=== PATIENT | female | born 1995 | race Caucasian/White ===

== ENCOUNTER → 2022-12-02 | Outpatient (CLI) | payer OTHER, SELFPAY ==
--- NOTE | 2022-12-02 13:21 | US_ITS ---
STUDY: FIRST TRIMESTER OBSTETRICAL ULTRASOUND REASON FOR EXAM: Female, 27 years old DATES LMP: 06/28/2023. TECHNIQUE: Transvaginal TECHNICAL QUALITY: Adequate. PRIOR ULTRASOUND: None. FINDINGS: There is visualization of a single gestational sac in a normal intrauterine position. The mean sac diameter (MSD) measures 8.4 mm, indicating an estimated gestational age (EGA) of 5 weeks, 4 days. The gestational sac shape is within normal limits. There is no demonstrated yolk sac. The placenta is non-visualized. The crown-rump length (CRL) measures 2.7 mm, indicating an estimated gestational age (EGA) of 5 weeks, 6 days. Cardiac activity not detected at this time. The estimated gestation age (EGA) by LMP is 10 weeks, 2 days. The estimated date of delivery (SHAHEED) by LMP is 06/28/2023. The estimated gestation age (EGA) by US is 5 weeks, 6 days. The estimated date of delivery (SHAHEED) by US is 07/29/2023. The uterus measures 9.2 cm x 5.4 cm x 4.8 cm. There is no demonstrated uterine fibroid. The cervix is closed. The right ovary measures 3.8 cm x 2.2 cm x 2.3 cm. There is no right ovarian cyst. There is no visualized right adnexal mass or complex lesion. The left ovary measures 3 cm x 2 cm x 2.2 cm. There is no left ovarian cyst. There is no visualized left adnexal mass or complex lesion. There is no fluid in the cul de sac. US/Transvaginal w/Preg US IMPRESSION: The uterine gestation with a mean gestational age of 5 weeks and 6 days. No cardiac activity is noted at this time. Follow-up is recommended. Electronically Signed: Jhonny Cabrales MD at 14:19 EST ,
== END | disposition home or self-care (01) ==
PROVIDERS: PCP Physician Assistant
DX: Z34.91 Encounter for supervision of normal pregnancy, unspecified, first trimester (principal); Z3A.01 Less than 8 weeks gestation of pregnancy
CPT/HCPCS: 76817

== ENCOUNTER → 2022-12-10 | Outpatient (CLI) | payer OTHER, SELFPAY ==
[2022-12-10 17:31] LABS: Absolute Lymphocyte Count 3.04 X10^3/uL (0.83-4.51); Absolute Neutrophil Count 7.1 X10^3/uL (2.0-7.7); Basophil# 0.05 X10^3/uL; Basophil% 0.4 % (0-1); Eosinophil# 0.13 X10^3/uL; Eosinophils% 1.2 % (0-5); Hematocrit 41.2 % (37-47); Hemoglobin 13.9 g/dL (12.0-15.0); Lymphocyte # 3.04 X10^3/ul (0.83-4.51); Lymphocyte % 27.2 % (19-41); Mean Corp Hgb Conc 33.7 g/dL (32-36); Mean Corpuscular Hgb 29.1 pg (27.0-32.0); Mean Corpuscular Volume 86.4 fL (81-99); Mean Platelet Vol. 9.2 fl (6.2-12.0); Monocyte# 0.86 X10^3/uL; Monocyte% 7.7 % (0-10); NRBC Flagged by Analyzer 0 % (0-5); Neutrophil # 7.07 X10^3/uL (2.7-7.7); Neutrophil % 63.1 % (47-70); Platelet Count 307 K/mm3 (150-450); RBC Distribution Width CV 11.9 % (11.6-14.6); RBC Distribution Width SD 37.8 fl (35.1-43.9); Red Blood Count 4.77 M/mm3 (4.2-5.4); White Blood Count 11.2 K/mm3 (4.4-11.0)
[2022-12-10 19:57] LABS: HIV - WCH Non-Reactive (Nonreactive); Hepatitis B Surface Antigen Non-Reactive (Nonreactive); Hepatitis C Antibody Non-Reactive (Nonreactive); Rubella IgG Reactive (Nonreactive); Syphilis Antibodies Non-reactive
[2022-12-12 19:13] LABS: V-Zoster IgG (Immunity) 1844 index (Immune >165)
[2022-12-17 11:36] LABS: HPV Reflexed? NOT INDICATED
== END | disposition home or self-care (01) ==
LOC: WOBLAB 16:13
PROVIDERS: PCP Physician Assistant; Visit Provider Obstetrics & Gynecology
DX: Z12.4 Encounter for screening for malignant neoplasm of cervix (principal); N91.2 Amenorrhea, unspecified
CPT/HCPCS: 36415; 85025; 86703; 86762; 86780; 86787; 86803; 87086; 87088; 87340; 88175; G0145

== ENCOUNTER → 2023-04-30 | Outpatient (CLI) | payer OTHER, SELFPAY ==
[2023-04-30 11:39] LABS: Hematocrit 37.1 % (37-47); Hemoglobin 12.2 g/dL (12.0-15.0); Mean Corp Hgb Conc 32.9 g/dL (32-36); Mean Corpuscular Hgb 30.1 pg (27.0-32.0); Mean Corpuscular Volume 91.6 fL (81-99); Platelet Count 217 K/mm3 (150-450); RBC Distribution Width CV 12.7 % (11.6-14.6); RBC Distribution Width SD 42.5 fl (35.1-43.9); Red Blood Count 4.05 M/mm3 (4.2-5.4); White Blood Count 8.6 K/mm3 (4.4-11.0)
[2023-04-30 11:55] LABS: Glucose Challenge Gest 1H 50g 157 mg/dL (70-140)
[2023-04-30 12:07] LABS: Syphilis Antibodies Non-reactive
== END | disposition home or self-care (01) ==
LOC: WOBLAB 10:26
PROVIDERS: PCP Physician Assistant; Visit Provider Obstetrics & Gynecology
DX: Z34.82 Encounter for supervision of other normal pregnancy, second trimester (principal)
CPT/HCPCS: 36415; 82950; 85027; 86780

== ENCOUNTER → 2023-05-05 | Outpatient (CLI) | payer OTHER, SELFPAY ==
[2023-05-05 09:25] LABS: Glucose GTT-Gestation. Fasting 95 mg/dL (<105)
[2023-05-05 10:44] LABS: Glucose GTT-Gestational 1 Hr 172 mg/dL (<190)
[2023-05-05 11:53] LABS: Glucose GTT-Gestational 2 Hr 112 mg/dL (<165)
[2023-05-05 12:39] LABS: Glucose GTT-Gestational 3 Hr 98 L (<145)
== END | disposition home or self-care (01) ==
LOC: WOBLAB 08:42
PROVIDERS: PCP Physician Assistant; Visit Provider Obstetrics & Gynecology
DX: Z34.82 Encounter for supervision of other normal pregnancy, second trimester (principal)
CPT/HCPCS: 36415; 82951; 82952

== ENCOUNTER → 2023-07-09 | Outpatient (CLI) | payer OTHER, SELFPAY ==
[2023-07-09 16:08] LABS: Hematocrit 35.6 % (37-47); Hemoglobin 11.5 g/dL (12.0-15.0); Mean Corp Hgb Conc 32.3 g/dL (32-36); Mean Corpuscular Hgb 28.5 pg (27.0-32.0); Mean Corpuscular Volume 88.1 fL (81-99); Mean Platelet Vol. 10.6 fl (6.2-12.0); Platelet Count 167 K/mm3 (150-450); RBC Distribution Width CV 12.8 % (11.6-14.6); RBC Distribution Width SD 40.8 fl (35.1-43.9); Red Blood Count 4.04 M/mm3 (4.2-5.4); White Blood Count 7.5 K/mm3 (4.4-11.0)
== END | disposition home or self-care (01) ==
PROVIDERS: PCP Physician Assistant; Visit Provider Obstetrics & Gynecology
DX: Z34.83 Encounter for supervision of other normal pregnancy, third trimester (principal); Z36.85 Encounter for antenatal screening for Streptococcus B
CPT/HCPCS: 36415; 85027; 87077; 87081; 87186

== ENCOUNTER 2023-08-04 03:20 | Inpatient (IN) | payer OTHER, SELFPAY ==
[2023-08-04] VITALS (87 sets, daily range): BP systolic 64–137; BP diastolic 28–95; PULSE 78–166; TEMP 36.1–37.3; O2SAT 87–100; BMI 36.8
[2023-08-04 03:21] LABS: ROM Internal Control Test YES-OK TO RESULT pt. (Internal QC)
[2023-08-04 03:22] LABS: ROM Patient Test POSITIVE (Negative); Record Kit Lot#, ROM+ K1409
[2023-08-04] MEDS: Lactated Ringers 1,000 ML 200 ML IV ×3 (04:00→15:53)
[2023-08-04] MEDS: Penicillin G Pot 5,000,000 UNITS in 0.9% Normal Saline (100mL MB+) 100 ML 150 UNITS IV (04:09)
[2023-08-04] MEDS: LACTATED RINGERS 500 ML 999 ML IV ×3 (04:10→11:45)
[2023-08-04 04:19] LABS: Absolute Lymphocyte Count 1.99 X10^3/uL (0.83-4.51); Absolute Neutrophil Count 4.6 X10^3/uL (2.0-7.7); Basophil# 0.03 X10^3/uL; Basophil% 0.4 % (0-1); Eosinophil# 0.11 X10^3/uL; Eosinophils% 1.5 % (0-5); Hematocrit 37.7 % (37-47); Hemoglobin 12.2 g/dL (12.0-15.0); Lymphocyte # 1.99 X10^3/ul (0.83-4.51); Lymphocyte % 26.9 % (19-41); Mean Corp Hgb Conc 32.4 g/dL (32-36); Mean Corpuscular Volume 86.5 fL (81-99); Mean Platelet Vol. 11.6 fl (6.2-12.0); Monocyte# 0.62 X10^3/uL; Monocyte% 8.4 % (0-10); NRBC Flagged by Analyzer 0 % (0-5); Neutrophil # 4.61 X10^3/uL (2.7-7.7); Neutrophil % 62.1 % (47-70); POSITIVE COUNT YES; Platelet Count 126 K/mm3 (150-450); RBC Distribution Width CV 13.3 % (11.6-14.6); RBC Distribution Width SD 41.7 fl (35.1-43.9); Red Blood Count 4.36 M/mm3 (4.2-5.4); White Blood Count 7.4 K/mm3 (4.4-11.0)
[2023-08-04 04:22] LABS: Differential Indicated SCAN CRITERIA MET
[2023-08-04] MEDS: Oxytocin 15 Units/NS 250ml 15 UNITS/250 ML IV.SOLN 2 UNITS IV (05:04)
[2023-08-04 05:17] LABS: Syphilis Antibodies Non-reactive
--- NOTE | 2023-08-04 06:51 | HP.PCM.OB_ITS ---
History and Physical Date of Admission: 08/04/23 Chief complaint: Leakage of fluid History present illness: 28-year-old at 40 weeks and 1 day with SHAHEED 08/03/2023 arrives with leakage of fluid. Denies headache, vision change, chest pain, shortness of breath, nausea vomit, right upper quadrant pain. Patient states good movement. is complicated by gestational thrombocytopenia platelets 126 today, GBS positive, BMI 36 Obstetric history: G1: Current Past medical history: None Medications: vitamin Past surgical history: [place] tooth extraction Allergies: No known drug allergies Family history: Denies history DVT or PE Social history: Denies smoking, alcohol use, drug use Review of systems: Besides above pertinent positives a full review of systems was performed and found to be negative Physical exam: Vitals: Blood pressure 135/95 pulse 105 SPO2 97% on room air General: Normal-appearing no acute distress HEENT: Normocephalic/atraumatic no cervical lymphadenopathy Cardiac/respiratory: No use accessory muscles, nonlabored breathing Abdomen: Soft, nontender, gravid Extremities: No peripheral edema normal peripheral pulses Psych: Normal affect normal demeanor nonpressured speech Labs: White blood cell count 7.4 hemoglobin 12.2 hematocrit 37.7% platelets 126. RPR nonreactive blood type a positive antibody negative. ROM positive Assessment and plan: 28-year-old G1, P0 at 40 weeks and 1 day with spontaneous rupture membranes with positive ROM. Patient states leakage of fluid started on 08/03 at 6 AM. Overnight monitored and started Pitocin this morning likely with PROM with unchanged cervix from office dilation and throughout her stay here. Educated patient on risks of prolonged rupture of membranes, patient partner state understanding. GBS positive will continue penicillin. Elevated blood pressure isolated at this point we will continue to monitor patient asymptomatic. Con tinue to augment with Pitocin
[2023-08-04] MEDS: Penicillin G 3,000,000 Units 50 ML 100 UNITS IV ×3 (08:15→16:49)
[2023-08-04] MEDS: fentaNYL-bupivacaine (epidural) 100 ML BAG EPIDURAL (11:35)
--- NOTE | 2023-08-04 19:09 | EX.PCM.OBRPT ---
Maternal Data Information Final SHAHEED: 08/03/23 Vaginal Delivery Operative Information Date of Procedure: 08/04/23 Pre-Operative Diagnosis: Sethi Intrauterine Post-Operative Diagnosis: Sethi Intrauterine Surgery / Procedure Performed: Spontaneous Vaginal Delivery Type of Anesthesia: Epidural Estimated Blood Loss: 300 Findings Description of Procedure: Spontaneous vaginal delivery of viable infant male. No nuchal cord. Baby to mom. Cord clamped and cut. Spontaneous delivery of placenta. Second-degree laceration repaired in the usual fashion, hemostatic. Large amount of labial edema noted. A Gender: Male (1 minute): 8 (5 minute): 9 Delayed Cord Clamping: Yes Complication Complications: None
[2023-08-04] MEDS: Oxytocin 15 Units/NS 250ml 15 UNITS/250 ML IV.SOLN 83 UNITS IV (19:25)
[2023-08-04] MEDS: Ibuprofen 600 MG Tablet PO (22:25)
[2023-08-05] VITALS (11 sets, daily range): BP systolic 109–131; BP diastolic 56–84; PULSE 81–100; RESP 16; TEMP 35.9–36.6; O2SAT 97–98
--- NOTE | 2023-08-05 06:32 | PCM.PN.OB ---
Subjective Subjective Patient doing well. Got some rest overnight. Having some soreness, controlled by Motrin and Tylenol. Objective Data Objective Data Vital Signs: Vital Signs Temp Pulse Resp BP Pulse Ox O2 Del Method 97.7 F L 97 16 109/56 L 100 Room Air 08/05/23 04:33 08/05/23 04:33 08/05/23 04:33 08/05/23 04:33 08/04/23 21:25 08/05/23 04:33 Oxygen Delivery Method Room Air Weight: 100.6 kg Body Mass Index (BMI) 36.8 Intake & Output: Intake and Output for Last 24 Hours 08/03/23 08/04/23 08/05/23 23:59 23:59 23:59 Intake Total 4798.33 / 4798.33 Output Total 1300 / 1300 Balance 3498.33 / 3498.33 Lab / Micro Data Attestation: I reviewed the patient's lab results. 08/04/23 04:00 Physical Exam Const alert, oriented x3 and no apparent distress HEENT normocephalic Head and Scalp: atraumatic Neck full ROM Resp normal respiratory effort Cardio regular rate GI normal to inspection, nondistended, normoactive bowel sounds GI Narrative: Uterus 2 cm below umbilicus Back/Spine normal ROM Extremity normal to inspection Extremity Narrative: Minimal pedal edema Neuro no focal motor deficits and no sensory deficits noted Psych mental status grossly normal and affect normal Assessment & Plan (1) Vaginal delivery: PLAN: day 1 status post . Breast-feeding. No issues overnight. Discharge home tomorrow.
[2023-08-05] MEDS: Senna/Docusate Sodium 1 Tablet PO (08:24)
[2023-08-05] MEDS: Ibuprofen 600 MG Tablet PO ×2 (08:24→14:59)
[2023-08-05] MEDS: Acetaminophen 500 MG Tablet 1000 MG PO (20:03)
[2023-08-06 02:00] VITALS: BP 130/66; PULSE 109; RESP 16; TEMP 36.3; O2SAT 98
[2023-08-06] MEDS: Ibuprofen 600 MG Tablet PO (05:40)
[2023-08-06] MEDS: Senna/Docusate Sodium 1 Tablet PO (05:40)
--- NOTE | 2023-08-06 07:09 | DS.PCM_ITS ---
Discharge Summary Date of Admission: 08/04/23 Date of Discharge: 08/06/23 Summary: Patient arrived on 08/04/2023 with spontaneous rupture of membranes. Subsequently delivered vaginally on 08/04/2023. Routine recovery. And discharged home in 08/06/2023 Meaningful Use Info Meaningful Use Diagnoses (Choose all that apply): None applicable Discharge Plan Admission Admit Date/Time: 08/04/23 03:20 Primary Reason for Your Visit: Spontaneous rupture membranes Attending Provider: Kendra Lawrence Primary Care Provider: Katelyn Rubin Instructions Additional Instructions / Restrictions: Regular diet. Weightbearing as tolerated. Okay to shower. No intercourse for 6 to 8 weeks. Call if fevers, chills, chest pain, shortness of breath. Follow- up 4 to 6 weeks Discharge Orders/Prescriptions Prescriptions: No Action + DHA 28 mg iron- 975 mcg-200 mg combo pack 1 pkg PO Referrals / Follow Up: Katelyn Rubin PA [Primary Care Provider] - Disposition Disposition (needs filled in before D/C Order can be placed): Home, Self Care
--- NOTE | 2023-08-06 07:10 | PN.OBGYN_ITS ---
Subjective Subjective No overnight complaints Objective Data Objective Data Vital Signs: Vital Signs Temp Pulse Resp BP Pulse Ox O2 Del Method 97.4 F L 109 H 16 130/66 H 98 Room Air 08/06/23 02:00 08/06/23 02:00 08/06/23 02:00 08/06/23 02:00 08/06/23 02:00 08/06/23 02:00 Oxygen Delivery Method Room Air Weight: 221 lb 12.56 oz Body Mass Index (BMI) 36.8 Intake & Output: Intake and Output for Last 24 Hours 08/04/23 08/05/23 08/06/23 23:59 23:59 23:59 Intake Total 4798.33 / 4798.33 Output Total 1300 / 1300 1000 / 1000 Balance 3498.33 / 3498.33 -1000 / -1000 Lab / Micro Data 08/04/23 04:00 Physical Exam Const alert, oriented x3, no apparent distress, average body habitus, healthy appearing and well nourished HEENT normocephalic and moist oral mucous membranes Eyes PERRL Neck full ROM Resp normal respiratory effort, no retractions and no use of accessory muscles GI GI Narrative: Soft, nontender, uterus firm and below umbilicus Extremity normal to inspection and full ROM Neuro moves all extremities and no focal motor deficits Psych mental status grossly normal, affect normal, speech normal and activity/motor behavior normal Assessment & Plan (1) Vaginal delivery: PLAN: day 2. Breast-feeding. Pain well controlled. Okay to discharge home today. Patient scheduled to follow-up with [facility], educated patient on monitor closure and timing, patient states understanding
[2023-08-06 07:57] VITALS: PULSE 127; O2SAT 83
[2023-08-06 07:58] VITALS: BP 117/68; PULSE 98
[2023-08-06 07:59] VITALS: BP 117/68; PULSE 94; RESP 18; TEMP 36.5; O2SAT 98
--- NOTE | 2023-08-11 11:22 | NURSING ---
follow up call done, mother reports she has already met with Heather a few times and found that really really helpful! She was satisfied with her care, denies questions or concerns at this time.
== END 2023-08-06 10:55 | disposition home or self-care (01) | DRG 806 ==
LOC: WPOUT 03:26 → WP 03:26
PROVIDERS: Admitting Provider Student in an Organized Health Care Education/Training Program; PCP Physician Assistant; Visit Provider Student in an Organized Health Care Education/Training Program
DX: O70.1 Second degree perineal laceration during delivery (principal); Z37.0 Single live birth; O99.12 Other diseases of the blood and blood-forming organs and certain disorders involving the immune mechanism complicating childbirth; O98.82 Other maternal infectious and parasitic diseases complicating childbirth; D69.6 Thrombocytopenia, unspecified; Z3A.40 40 weeks gestation of pregnancy; B95.1 Streptococcus, group B, as the cause of diseases classified elsewhere
CPT/HCPCS: 59025; 59050; 84112; 85025; 86780; 86850; 86900; 86901; 99221; J7120; G0378